=== PATIENT | male | born 1950 ===

== ENCOUNTER 2023-12-14 10:40 | Emergency (ER) | payer MEDICARE, MEDICAID, SELFPAY ==
[2023-12-14 10:43] VITALS: BP 170/92; PULSE 104; O2SAT 96
--- NOTE | 2023-12-14 11:04 | ED_ITS ---
HPI - General Adult General Chief complaint: Urogenital-Male Stated complaint: PENIS PAIN S/P F/C ACCID PULLED OUT FROM SNF Time Seen by Provider: 12/14/23 10:52 History of Present Illness HPI narrative: The patient is a 73-year-old male who lives at a custodial, [facility]. He has significant dementia. He has a chronic suprapubic urinary catheter. Apparently he was using his wheelchair today when he rolled over the tubing for his catheter and the catheter was accidentally dislodged. He was sent to the emergency room because his catheter had come out. He has no other complaints. According to documents from the patient's custodial the patient has a history of dementia, bipolar disorder, type 2 diabetes, COPD as well as multiple other medical problems. He has a MOLST form which indicates he is DNR/DNI. Related Data Allergies Allergy/AdvReac Type Severity Reaction Status Date / Time No Known Allergies Allergy Verified 12/14/23 10:54 Review of Systems Review of Systems: Yes all other systems are reviewed and are negative [facility] Social History Social History Alcohol intake: former Smoked in Last 30 Days: Yes Use of substances other than those prescribed or required for medical reasons: No Physical Exam ED Vital Signs: Vital Signs - 24 hr 12/14/23 11:09 12/14/23 11:12 Temperature 98.3 F Pulse Rate 95 Respiratory Rate 18 Blood Pressure 148/82 H Pulse Oximetry 95 Oxygen Delivery Method Room Air BMI result Body Mass Index 25.0 Const Other: The patient is a chronically ill and unkempt 73-year-old who was awake and alert and does not seem in acute distress. He does not appear obviously acutely ill. HENMT Other: The face is symmetrical. ?Mucous membranes moist. Eyes Other: Pupils are round equal, conjunctivae are clear, extraocular movements intact Neck Other: No JVD Resp Effort & Inspection: normal respiratory effort Auscultation: clear to auscultation bilaterally Cardio Rate: regular rate Rhythm: regular rhythm Heart sounds: S1 normal heart sound present and S2 normal heart sound present GI Other: The abdomen is soft and nontender. There is a stoma in the mid lower abdomen at the abdominal pelvic junction. Skin Other: Pale and dry Neuro Other: Awake, alert, poorly oriented consistent with dementia but otherwise neurologically intact. Extrem Other: No peripheral edema. Medications Administered Discontinued Medications Generic Name Dose Route Start Last Admin Trade Name Naga PRN Reason Stop Dose Admin Lidocaine HCl 10 ml 12/14/23 10:54 12/14/23 11:12 Lidocaine Hcl 2 % Urojet 10 Ml Jel.Pf.Neal TOPICAL 12/14/23 10:55 10 ml ONCE ONE Administration Medical Decision Making Medical Decision Making MDM Narrative: The patient is here because of an accidentally dislodged chronic suprapubic cat heter. This happened just before arrival. The skin around the stoma was prepped with Betadine. The stoma was lubricated with your a jet. The previous catheter had been a 20 Jordanian catheter. Under sterile conditions I placed a replacement 20 Jordanian urinary catheter through the stoma without difficulty. There was immediate return of urine and a new bag was applied to the catheter. The balloon of the catheter was inflated with 30 mL of urine. The catheter is functioning well. I think he may return to his facility. Discharge Plan Discharge Clinical Impression: Displacement of cystostomy catheter Qualifiers: Encounter type: initial encounter Qualified Code(s): T83.020A - Displacement of cystostomy catheter, initial encounter Patient Disposition: Home, Self-Care Instructions: How to Care for Your Suprapubic Catheter (DC), Suprapubic Cystostomy (DC) Additional Instructions: A new 20 Jordanian urinary catheter was placed without difficulty. Please continue standard catheter care and follow-up with urology as needed. Referrals: [facility] [Outside] (Suprapubic catheter replacement) Maximiliano Loyd MD [Physician] - (Suprapubic catheter care) YULISSA PIERRE [Physician] - (suprapubic catheter)
[2023-12-14 11:09] VITALS: RESP 18; TEMP 36.8; O2SAT 95; BMI 25.0
[2023-12-14 11:12] VITALS: BP 148/82; PULSE 95
[2023-12-14] MEDS: Lidocaine HCl 2 % Urojet 10 ML JEL.PF.APP TOPICAL (11:12)
--- NOTE | 2023-12-14 11:14 | PC.NURSE ---
From [facility] after patient accidentally rolled over t tubing while self propelling in wheelchair. Patient does not allow snf staff to replace and was transferred to hospital. Alert with confusion. bladder scanned for 236 mls, patient denies pain or discomfort, no bleeding from subrapubic insertion site. Provider replaced suprapubic with immediate output of clear yellow urine
--- NOTE | 2023-12-14 11:29 | PC.NURSE ---
20fr 30cc subrapubic placed by provider
--- NOTE | 2023-12-14 12:40 | PC.NURSE ---
Report called to Agnes at [facility] aware patient is returning with 20f 30cc supraupic catheter
== END 2023-12-14 12:43 ==
PROVIDERS: Emergency Provider Emergency Medicine; PCP Emergency Medicine
DX: T83.028A Displacement of other urinary catheter, initial encounter (principal); Y82.8 Other medical devices associated with adverse incidents; F03.90 Unspecified dementia, unspecified severity, without behavioral disturbance, psychotic disturbance, mood disturbance, and anxiety
CPT/HCPCS: 51705; 99284

== ENCOUNTER 2025-05-02 08:59 | Inpatient (IN) | payer MEDICARE, MEDICAID, SELFPAY ==
[2025-05-02] VITALS (9 sets, daily range): BP systolic 131–152; BP diastolic 68–77; PULSE 80–107; RESP 16–28; TEMP 36.4–37.1; O2SAT 88–96; BMI 22.0; BMI 21.3
--- NOTE | ~2025-05-02 | XR_ITS ---
CLINICAL HISTORY: sob 1 view chest x-ray Comparison: None Findings: Right lung infiltrate and small left basilar atelectasis/infiltrate. Mild blunting of the costophrenic recesses due to pleural thickening versus pleural effusion. Heart size is normal. Deformity of the left proximal humerus due to old healed fracture. A few old left rib fractures. IMPRESSION: Right lung infiltrate and small left basilar atelectasis/infiltrate. Mild blunting of the costophrenic recesses due to pleural thickening versus pleural effusion. This document has been electronically signed by: Xin Lamb MD on 05/02/2025 10:46:27
--- NOTE | 2025-05-02 09:18 | ECG_ITS ---
Test Reason : dyspnea Blood Pressure : */* mmHG Vent. Rate : 86 BPM Atrial Rate : 86 BPM P-R Int : 158 ms QRS Dur : 92 ms QT Int : 382 ms P-R-T Axes : 56 10 23 degrees QTcB Int : 457 ms Normal sinus rhythm Normal ECG When compared with ECG of 22-Jan-2006 17:05, Previous ECG had limb leads reversal Criteria for Septal infarct are no longer Present T wave amplitude has decreased in Anterior leads Nonspecific T wave abnormality no longer evident in Lateral leads Referred By: Generic ED Physician Electronically Signed By: Ramon Ramirez
--- NOTE | 2025-05-02 09:24 | ED_ITS ---
HPI - SOB/Dyspnea General Chief Complaint: Dyspnea Stated Complaint: SOB/86 % RA,96% 3LPM,PROD COUGH FROM SNF PER EMS Time Seen by Provider: 05/02/25 09:05 Source: patient and EMS Mode of arrival: EMS Limitations: other (dementia) History of Present Illness ED Provider: NAYELY DIAZ PA-C HPI Narrative: 74-year-old male with history of Alzheimer dementia, bipolar disorder, T2DM, COPD, HTN, anxiety, MDD, alcohol use disorder, hypothyroidism presents to the ED today via EMS [facility] ([facility]) for evaluation of congested cough and low oxygen saturation. I spoke with patient's nurse, Pam. Upon entering patient's room this morning, she noticed that patient had increased effort of breathing. Just did not seem himself . She checked his oxygen saturation which was 86% on room air with respirations at 28. Lungs had wheezes and rhonchi. Patient's roommate mention that he has been coughing all night. She had placed him on 2 L nasal cannula and contacted on-call provider who advised to transferred to ED for further workup. She states he is not on oxygen at baseline. History is quite limited due to patient's dementia. He primarily talks about his two sons. He does not have any complaints at present however I do appreciate a congested cough during interview. He presents with a MOLST form that indicates that he is a DNR DNI with transfer to hospital. Related Data Allergies Allergy/AdvReac Type Severity Reaction Status Date / Time No Known Allergies Allergy Verified 05/02/25 09:15 Review of Systems 2 Review of Systems: Yes Unobtainable due to mental condition (dementia) [facility] Past Medical History Attestation statement: The following information was validated with the patient. Source: old records reviewed and nursing notes reviewed Social History Social History Unable to assess alcohol history related to: Unable to respond Alcohol intake: former Smoked in Last 30 Days: No Use of substances other than those prescribed or required for medical reasons: Unknown Advance Directives: No Advance Directives Information Provided: Yes Physical Exam 2 Vital Signs: Vital Signs: Last Vital Signs Temp 98.2 F 05/02/25 09:11 Pulse 80 05/02/25 11:08 Resp 16 05/02/25 11:08 BP 143/74 H 05/02/25 09:11 Pulse Ox 95 05/02/25 09:11 O2 Del Method Nasal Cannula 05/02/25 09:11 Oxygen Flow Rate 3 05/02/25 09:11 BMI result Body Mass Index 22.0 Hypertensive, afebrile, hypoxic placed on 3 L nasal cannula General: No acute distress Skin: Warm, dry, intact. No rashes or lesions. Head: Normocephalic, atraumatic. EENT: Hearing is intact b/l. Conjunctiva clear. PERRLA. EOM intact. Moist mucous membranes.? Neck: Supple without LAD Cardiac: Chest wall symmetric. RRR Lungs: Normal respiratory effort without accessory muscle use. No tripoding. Lungs with diffuse expiratory wheezes and rhonchi. No crackles. Abdomen: Soft, non-tender, non-distended. No rebound tenderness or guarding. Positive BS x4. Suprapubic catheter in place to lower abdomen. No surrounding erythema. No discharge. Back: No midline spinous or paraspinal tenderness. No step off deformity. Ext: Upper and lower extremities atraumatic, without tenderness, deformity, swelling or erythema. No pitting edema. Neuro: Appears to be at baseline mental status w/ dementia. He is alert but not oriented. Normal speech. Sensation intact to light touch. NV intact distally. Course Course Course Narrative: CBC without leukocytosis or left shift. Normocytic anemia, H&H stable. No priors to compare to. Chemistry showing mild hyponatremia to 133 and hypomagnesemia to 1.5. Repletion ordered. No other acute electrolyte abnormality requiring intervention. No SHANON. Liver function WNL. Troponin undetectable. BNP undetectable. CHF unlikely. EKG showing normal sinus rhythm without acute ischemic changes or ST elevations. Urine is acutely infected. IV ceftriaxone ordered for treatment. He has tested negative for COVID, flu, RSV. Chest x-ray shows findings consistent with pneumonia to right lung. Will add on IV azithromycin. > treated with bronch treatment, Solu-Medrol, IV magnesium, IV ceftriaxone and IV azithromycin > given hypoxic respiratory failure secondary to pneumonia, discussed with hospitalist SHAYNE maciel. Patient will be admitted to medicine for further management. Medications Administered Generic Name Dose Route Start Last Admin Trade Name Freq PRN Reason Stop Dose Admin Azithromycin 500 mg/ Sodium 250 mls @ 125 mls/hr 05/02/25 10:51 05/02/25 11:00 Chloride IV 05/02/25 12:50 125 mls/hr ONCE ONE Administration Discontinued Medications Generic Name Dose Route Start Last Admin Trade Name Naga PRN Reason Stop Dose Admin Ceftriaxone Sodium 1 gm 05/02/25 10:02 05/02/25 10:12 Ceftriaxone Sodium 1 Gm Vial IVPUSH 05/02/25 10:03 1 gm ONCE ONE Administration Albuterol Sulfate 2.5 mg/ 0 mg 05/02/25 11:03 05/02/25 11:05 Albuterol/Ipratropium 3 ml INHALE 05/02/25 11:04 5 dose ONCE ONE Administration Magnesium Sulfate 2 gm in 50 mls @ 150 mls/hr 05/02/25 10:30 05/02/25 11:10 Magnesium Sulfate/H2o IV 05/02/25 10:49 Infused ONCE ONE Infusion Methylprednisolone Sodium Succinate 125 mg 05/02/25 09:39 05/02/25 10:24 Methylprednisolone Sod Succ 125 Mg/2 Ml Vial IVPUSH 05/02/25 09:40 Not Given ONCE ONE Methylprednisolone Sodium Succinate 125 mg 05/02/25 10:15 05/02/25 10:24 Methylprednisolone Sod Succ 125 Mg Vial IVPUSH 05/02/25 10:16 125 mg ONCE ONE Administration Medical Decision Making Medical Decision Making MDM Narrative: 74-year-old male with history of Alzheimer dementia, bipolar disorder, T2DM, COPD, HTN, anxiety, MDD, alcohol use disorder, hypothyroidism presents to the ED today via EMS from [facility] facility ([facility]) for evaluation of congested cough and low oxygen saturation. Patient hypoxic to 86% on room air, placed on 3 L nasal cannula with improvement to 95%. Hypertensive. Afebrile rectally. He is overall well-appearing. No respiratory distress or tripoding. Congested cough, lungs with diffuse expiratory wheezes and rhonchi. No pitting edema. Differential diagnosis includes viral syndrome, bronchitis, pneumonia, anemia, electrolyte abnormality, CHF, COPD exacerbation Plan for labs, viral swabs, cxr, breathing treatment/ steroid, ekg, re- evaluation. Differential Diagnosis Differential Diagnoses: The differential diagnosis associated with the presentation includes as above. Admission/Observation Consideration of admission/observation: Escalation of care including admission/observation considered Patient admitted to medicine for treatment of hypoxic respiratory failure secondary to pneumonia Consult Healthcare Provider Management of the patient was discussed with: Hospitalist (Kaleigh BELLA) Lab Data MDM Lab Attestation statement: I reviewed the patient's lab results. as above. 05/02/25 09:36 05/02/25 09:36 Labs: Lab Results 05/02/25 05/02/25 05/02/25 Range/Units 09:34 09:35 09:36 WBC 8.5 (4.8-10.8) X10*3/uL RBC 4.19 L (4.60-5.80) X10*6/uL Hgb 13.1 L (14.0-18.0) g/dl Hct 38.3 L (42.0-52.0) % MCV 91.4 (80.0-98.0) fL MCH 31.3 (27.0-33.0) pg MCHC 34.2 (31.0-36.0) g/dl RDW 13.7 (11.0-16.0) % Plt Count 304 (160-400) X10*3/uL MPV 9.6 (9.4-12.4) fL Immature Gran % (Auto) 0.5 H (0.0-0.4) % Neut % (Auto) 74.6 H (45-73) % Lymph % (Auto) 15.1 L (20-40) % Parker % (Auto) 6.8 (2-11) % Eos % (Auto) 2.5 (0-4) % Baso % (Auto) 0.5 (0-2) % Lymph # (Auto) 1.3 (1.2-4.9) X10*3/uL Parker # (Auto) 0.6 (0.1-1.2) X10*3/uL Eos # (Auto) 0.2 (0.0-0.4) X10*3/uL Baso # (Auto) 0.0 (0.0-0.2) X10*3/uL Abs Immat Gran (auto) 0.04 H (0.00-0.03) X10*3/uL Absolute Neuts (auto) 6.4 (2.0-8.3) x10*3/uL Absolute Nucleated RBC 0.000 (0.0-0.012) X10*3/uL Nucleated RBC % (auto) 0.0 (0.0-0.2) /100WBC VBG pH (7.32-7.43) VBG pCO2 mmHg VBG pO2 mmHg VBG HCO3 (22-26) mmol/L VBG O2 Saturation % VBG Base Excess mmol/L Sodium 133 L (135-145) mmol/L Potassium 4.3 (3.3-5.1) mmol/L Chloride 93 L (96-108) mmol/L Carbon Dioxide 29 (22-29) mmol/L Anion Gap 15 (12-20) BUN 16 (9-16) mg/dL Creatinine 0.86 (0.5-1.4) mg/dL Estim Creat Clear Calc 80.8 Estimated GFR > 60 Random Glucose 192 H (60-115) mg/dL Lactic Acid 0.9 (0.5-2.0) mmol/L Calcium 10.0 (8.4-10.2) mg/dL Magnesium 1.5 L (1.6-2.6) mg/dL Total Bilirubin 0.4 (0.0-1.0) mg/dL AST 29 (5-37) U/L ALT 18 (0-40) U/L Alkaline Phosphatase 73 (39-117) U/L Troponin I High Sens < 2.7 (<3.5-35.0) ng/L B-Natriuretic Peptide < 10 (<100) pg/mL Total Protein 8.0 (6.5-8.0) g/dL Albumin 4.0 (3.5-5.0) g/dL Urine Color Yellow Urine Appearance Turbid Urine pH 8.0 (5.0-9.0) Ur Specific [place] 1.015 (1.005-1.025) Urine Protein 30 (1+) H (Neg-Trace) mg/dL Urine Glucose (UA) Negative (Negative) mg/dL Urine Ketones Negative (Negative) mg/dL Urine Blood Trace H (Negative) Urine Nitrite Positive H (Negative) Ur Leukocyte Esterase Large (3+) H (Negative) Urine RBC 0-2 (0-2) /HPF Urine WBC >50 H (0-5) /HPF Ur Squamous Epith Cells 3-5 (0-2) /HPF Other Crystals Present Urine Bacteria 4+ (None Seen) Hyaline Casts 3-5 (0-2) /LPF Influenza Type A (PCR) NEGATIVE (Negative) Influenza Type B (PCR) NEGATIVE (Negative) RSV RNA Qual (PCR) NEGATIVE (Negative) SARS-CoV-2 RNA (RT-PCR) NEGATIVE (Negative) 05/02/25 Range/Units 10:13 WBC (4.8-10.8) X10*3/uL RBC (4.60-5.80) X10*6/uL Hgb (14.0-18.0) g/dl Hct (42.0-52.0) % MCV (80.0-98.0) fL MCH (27.0-33.0) pg MCHC (31.0-36.0) g/dl RDW (11.0-16.0) % Plt Count (160-400) X10*3/uL MPV (9.4-12.4) fL Immature Gran % (Auto) (0.0-0.4) % Neut % (Auto) (45-73) % Lymph % (Auto) (20-40) % Parker % (Auto) (2-11) % Eos % (Auto) (0-4) % Baso % (Auto) (0-2) % Lymph # (Auto) (1.2-4.9) X10*3/uL Parker # (Auto) (0.1-1.2) X10*3/uL Eos # (Auto) (0.0-0.4) X10*3/uL Baso # (Auto) (0.0-0.2) X10*3/uL Abs Immat Gran (auto) (0.00-0.03) X10*3/uL Absolute Neuts (auto) (2.0-8.3) x10*3/uL Absolute Nucleated RBC (0.0-0.012) X10*3/uL Nucleated RBC % (auto) (0.0-0.2) /100WBC VBG pH 7.46 H (7.32-7.43) VBG pCO2 45 mmHg VBG pO2 47 mmHg VBG HCO3 32 H (22-26) mmol/L VBG O2 Saturation 77.0 % VBG Base Excess 7.8 mmol/L Sodium (135-145) mmol/L Potassium (3.3-5.1) mmol/L Chloride (96-108) mmol/L Carbon Dioxide (22-29) mmol/L Anion Gap (12-20) BUN (9-16) mg/dL Creatinine (0.5-1.4) mg/dL Estim Creat Clear Calc Estimated GFR Random Glucose (60-115) mg/dL Lactic Acid (0.5-2.0) mmol/L Calcium (8.4-10.2) mg/dL Magnesium (1.6-2.6) mg/dL Total Bilirubin (0.0-1.0) mg/dL AST (5-37) U/L ALT (0-40) U/L Alkaline Phosphatase (39-117) U/L Troponin I High Sens (<3.5-35.0) ng/L B-Natriuretic Peptide (<100) pg/mL Total Protein (6.5-8.0) g/dL Albumin (3.5-5.0) g/dL Urine Color Urine Appearance Urine pH (5.0-9.0) Ur Specific [place] (1.005-1.025) Urine Protein (Neg-Trace) mg/dL Urine Glucose (UA) (Negative) mg/dL Urine Ketones (Negative) mg/dL Urine Blood (Negative) Urine Nitrite (Negative) Ur Leukocyte Esterase (Negative) Urine RBC (0-2) /HPF Urine WBC (0-5) /HPF Ur Squamous Epith Cells (0-2) /HPF Other Crystals Urine Bacteria (None Seen) Hyaline Casts (0-2) /LPF Influenza Type A (PCR) (Negative) Influenza Type B (PCR) (Negative) RSV RNA Qual (PCR) (Negative) SARS-CoV-2 RNA (RT-PCR) (Negative) Independent Interpretation I performed an independent interpretation of an: EKG and Plain X-Ray Interpretation: Chest x-ray showing right lung infiltrate EKG showing normal sinus rhythm, rate of 86 beats per minute, no acute ischemic changes or ST elevations Radiology Impression Discussion of test interpretation with radiology: I have reviewed the radiologist's reading. Radiologist Impression: Date of Service: 05/02/25 Procedure(s): XR chest 1V Accession Number(s): [id number] cc: Physician,Unknown ; Nayely Diaz~ CLINICAL HISTORY: sob 1 view chest x-ray Comparison: None Findings: Right lung infiltrate and small left basilar atelectasis/infiltrate. Mild blunting of the costophrenic recesses due to pleural thickening versus pleural effusion. Heart size is normal. Deformity of the left proximal humerus due to old healed fracture. A few old left rib fractures. IMPRESSION: Right lung infiltrate and small left basilar atelectasis/infiltrate. Mild blunting of the costophrenic recesses due to pleural thickening versus pleural effusion. This document has been electronically signed by: Xin Lamb MD on 05/02/2025 10:46:27 Independent Historian Clinical information obtained from an independent historian. History obtained from or confirmed by: EMS and Other (Nursing staff) External Record Review External record reviewed: Inpatient record, Office record and Outpatient record Prescription Management I considered prescription management with: Antibiotic Chronic Conditions Patient?s care impacted by: Other (COPD) Social Determinants Patient?s care significantly limited by Social Determinants of Health including: Other Social Determinant of Health Critical Care Time Critical Care Time Critical Care Time: Yes Total Critical Care Time: 35 Attestation: Critical care time in the amount of 35 minutes has been provided to the patient in terms of direct patient care, frequent reevaluation, consultation with hospitalist, review and interpretation of medical data and results, and management of potentially life-threatening conditions. This is all outside of any medical procedures. Discharge Plan Discharge Clinical Impression: Acute hypoxic respiratory failure, Community acquired pneumonia, Urinary tract infection Patient Disposition: Admitted As Inpatient
[2025-05-02 09:44] LABS: MANUAL DIFF FLAG NO
[2025-05-02 09:46] LABS: Basophils Percent Auto 0.5 % (0-2); Eosinophils Absolute Auto 0.2 X10*3/uL (0.0-0.4); Eosinophils Percent Auto 2.5 % (0-4); Hematocrit 38.3 % (42.0-52.0); Hemoglobin 13.1 g/dl (14.0-18.0); Imm Gran Abs Auto 0.04 X10*3/uL (0.00-0.03); Imm Gran Pct Auto 0.5 % (0.0-0.4); Lymphocytes Absolute Auto 1.3 X10*3/uL (1.2-4.9); Lymphocytes Percent Auto 15.1 % (20-40); Mean Corpuscular HGB Conc 34.2 g/dl (31.0-36.0); Mean Corpuscular Hemoglobin 31.3 pg (27.0-33.0); Mean Corpuscular Volume 91.4 fL (80.0-98.0); Mean Platelet Volume 9.6 fL (9.4-12.4); Monocytes Absolute Auto 0.6 X10*3/uL (0.1-1.2); Monocytes Percent Auto 6.8 % (2-11); Neutrophils Absolute Auto 6.4 x10*3/uL (2.0-8.3); Neutrophils Percent Auto 74.6 % (45-73); Platelet Count 304 X10*3/uL (160-400); Red Blood Count 4.19 X10*6/uL (4.60-5.80); Red Cell Distribution Width 13.7 % (11.0-16.0); White Blood Count 8.5 X10*3/uL (4.8-10.8)
[2025-05-02 09:47] LABS: Appearance Urine Turbid; Color Urine Yellow; Glucose Urine UA Negative (Negative); Leukocyte Esterase Urine Large (3+) (Negative); Nitrite Urine Positive (Negative); Specific Gravity - Urine 1.015 (1.005-1.025); UMIC TRIGGER UACC YES; Urine Blood Trace (Negative); Urine Ketones Negative (Negative); Urine Protein 30 (1+) mg/dL (Neg-Trace)
--- NOTE | 2025-05-02 09:56 | PC.NURSE ---
Pt to ED from SNF for shortness of breath, new onset of productive cough and decreased O2 saturations. Pt A/O x 1 (baseline, hx dementia), no apparent s/s of distress. Requiring 3L O2 via NC to maintain O2 sat above 90%. #20 placed in LFA, labs collected and sent. CXR pending.
[2025-05-02 10:03] LABS: Lactic Acid 0.9 mmol/L (0.5-2.0)
[2025-05-02 10:04] LABS: Bacteria Urine 4+ (None Seen); Other Crystals Urine Present; RBC Urine 0-2 /HPF (0-2); UACC Culture Trigger YES; WBC Urine >50 /HPF (0-5)
[2025-05-02 10:08] LABS: B Type Natriuretic Peptide < 10 pg/mL (<100)
[2025-05-02] MEDS: cefTRIAXone sodium 1 GM VIAL IVPUSH (10:12)
[2025-05-02 10:14] LABS: Troponin-I High Sensitivity < 2.7 ng/L (<3.5-35.0)
[2025-05-02 10:14] LABS: Alanine Aminotransferase 18 U/L (0-40); Alkaline Phosphatase 73 U/L (39-117); Anion Gap 15 (12-20); Aspartate Amino Transferase 29 U/L (5-37); Bilirubin Total 0.4 mg/dL (0.0-1.0); Blood Urea Nitrogen 16 mg/dL (9-16); Carbon Dioxide 29 mmol/L (22-29); Chloride 93 mmol/L (96-108); Creatinine Clr Calc Pharmacy 80.8; Estimated Glomerular Filt Rate > 60; Glucose Random 192 mg/dL (60-115); Magnesium 1.5 mg/dL (1.6-2.6); Potassium 4.3 mmol/L (3.3-5.1); Sodium 133 mmol/L (135-145)
[2025-05-02 10:18] LABS: Venous Blood Gas Refer to POC result
[2025-05-02 10:18] LABS: VBG Base Excess 7.8 mmol/L; VBG HCO3 32 mmol/L (22-26); VBG pCO2 45 mmHg; VBG pH 7.46 (7.32-7.43); VBG pO2 47 mmHg
[2025-05-02 10:29] LABS: Influenza A PCR NEGATIVE (Negative); Influenza B PCR NEGATIVE (Negative); Resp Syncy Virus RNA Qual PCR NEGATIVE (Negative); SARS COV2 PCR INHOUSE NEGATIVE (Negative)
[2025-05-02] MEDS: Magnesium Sulfate/H2O 2 GM/50 ML PIGGYBACK IV (10:48)
[2025-05-02] MEDS: Azithromycin 500 MG in 0.9 % Sodium Chloride 250 ML 125 MG IV (11:00)
[2025-05-02] MEDS: Albuterol Sulfate 2.5 MG, Albuterol/Iprat 2.5/0.5MG 3 ML 3 ML INHALE (11:05)
--- NOTE | 2025-05-02 11:10 | P.HPHOSP_ITS ---
History of Present Illness Date of Service: 05/02/25 Attending physician on admission: Li Salgado Chief Complaint: Low O2 sats Fernando Zavala this is a 74 years old man with past medical history significant for COPD, chronic suprapubic catheter, type 2 diabetes mellitus, on size murmur dementia, hypothyroidism, hyperlipidemia, essential hypertension, depression, constipation, hypokalemia on supplementation,alcohol abuse disorder and dysphagia was brought from [facility] due to coughing and low n O2 sats on room air 80s. According to ED, nursing from his nursing facility noted that patient was having difficulty breathing, coughing all night and just did not seem himself. His oxygen saturation was 80% on room air with respiration of 28. He was also found to be very wheezy. He was placed on supplemental oxygen and sent to the emergency department for further management and evaluation. HPI was difficult to obtain directly from the patient due to his dementia. In the ED, he was found to have stable vital signs. He is currently requiring 3 L/min via nasal cannula. Blood workup showed no leukocytosis. There is no lactic acidosis. Hemoglobin is 13.1 and hematocrit 28.3. Platelets are normal. Venous blood gas showed pH of 7.46 and pCO2 45. HC03 is 32. Corrected sodium is 135. Glucose is 192. This hypomagnesemia, 1.5 but no other significant electrolyte imbalances. LFTs and renal function are normal. Troponin and BNP are normal. Urinalysis consistent with urinary tract infection. Viral testing for COVID-19, influenza and RSV is negative. CXR showed right lung infiltrate and small left basilar atelectasis/infiltrates; and findings possibly due to pleural thickening versus pleural effusion. ECG showed normal sinus rhythm, heart rate 86 bpm, with no significant ischemic changes. ED tx: Solu-Medrol 125 mg IV, ceftriaxone 1 g IV, azithromycin 500 mg IV and DuoNeb x1. 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 Hyperlipidemia Alzheimer's dementia Hypothyroidism Social History Unable to assess alcohol history related to: Unable to respond Alcohol intake: former Smoked in Last 30 Days: No Use of substances other than those prescribed or required for medical reasons: Unknown Advance Directives: No Advance Directives Information Provided: Yes Meds Allergies Allergy/AdvReac Type Severity Reaction Status Date / Time No Known Allergies Allergy Verified 05/02/25 09:15 Active Medications: Current Medications Azithromycin 500 mg/ Sodium (Chloride) 250 mls @ 125 mls/hr IV ONCE ONE Stop: 05/02/25 12:50 Last Admin: 05/02/25 11:00 Dose: 125 mls/hr Physical Exam 2 Vital Signs and Narrative: Vital Signs: Last Vital Signs Temp 98.2 F 05/02/25 09:11 Pulse 80 05/02/25 11:08 Resp 16 05/02/25 11:08 BP 143/74 H 05/02/25 09:11 Pulse Ox 95 05/02/25 09:11 O2 Del Method Nasal Cannula 05/02/25 09:11 Oxygen Flow Rate 3 05/02/25 09:11 BMI result Body Mass Index 22.0 Constitutional - Awake and Alert, No apparent distress. Nasal cannula in place. HEENT - PER, EOMI Heart - RRR, No murmurs Lungs - Normal lung expansion, Normal respiratory effort, No respiratory distress. Mild tachypnea. Decreased breath sounds at bases. No wheezing or rhonchi. No crackles. Abdomen - NT / ND; +BS; No rebound or guarding. Suprapubic catheter in place. Site of insertion is clean.. Extremities - no calf tenderness bilaterally, no swelling Musculoskeletal - generalized atrophy. Skin - Warm/Dry Neurological - Alert. Patient is quiet. The answering my questions. Moving all extremities spontaneously. No focal weakness grossly noted. Psychological - No agitation. Results Labs 05/02/25 09:36 05/02/25 09:36 Labs: Laboratory Results - last 24 hr 05/02/25 05/02/25 05/02/25 09:34 09:35 09:36 MCV 91.4 MCH 31.3 MCHC 34.2 RDW 13.7 Plt Count 304 MPV 9.6 Immature Gran % (Auto) 0.5 H Neut % (Auto) 74.6 H Lymph % (Auto) 15.1 L [place] % (Auto) 6.8 Eos % (Auto) 2.5 Baso % (Auto) 0.5 Lymph # (Auto) 1.3 [place] # (Auto) 0.6 Eos # (Auto) 0.2 Baso # (Auto) 0.0 Abs Immat Gran (auto) 0.04 H Absolute Neuts (auto) 6.4 Absolute Nucleated RBC 0.000 Nucleated RBC % (auto) 0.0 VBG pH VBG pCO2 VBG pO2 VBG HCO3 VBG O2 Saturation VBG Base Excess Anion Gap 15 Estim Creat Clear Calc 80.8 Estimated GFR > 60 Random Glucose 192 H Lactic Acid 0.9 Calcium 10.0 Magnesium 1.5 L Total Bilirubin 0.4 AST 29 ALT 18 Alkaline Phosphatase 73 Troponin I High Sens < 2.7 B-Natriuretic Peptide < 10 Total Protein 8.0 Albumin 4.0 Urine Color Yellow Urine Appearance Turbid Urine pH 8.0 Ur Specific [place] 1.015 Urine Protein 30 (1+) H Urine Glucose (UA) Negative Urine Ketones Negative Urine Blood Trace H Urine Nitrite Positive H Ur Leukocyte Esterase Large (3+) H Urine RBC 0-2 Urine WBC >50 H Ur Squamous Epith Cells 3-5 Other Crystals Present Urine Bacteria 4+ Hyaline Casts 3-5 Influenza Type A (PCR) NEGATIVE Influenza Type B (PCR) NEGATIVE RSV RNA Qual (PCR) NEGATIVE SARS-CoV-2 RNA (RT-PCR) NEGATIVE 05/02/25 10:13 MCV MCH MCHC RDW Plt Count MPV Immature Gran % (Auto) Neut % (Auto) Lymph % (Auto) [place] % (Auto) Eos % (Auto) Baso % (Auto) Lymph # (Auto) [place] # (Auto) Eos # (Auto) Baso # (Auto) Abs Immat Gran (auto) Absolute Neuts (auto) Absolute Nucleated RBC Nucleated RBC % (auto) VBG pH 7.46 H VBG pCO2 45 VBG pO2 47 VBG HCO3 32 H VBG O2 Saturation 77.0 VBG Base Excess 7.8 Anion Gap Estim Creat Clear Calc Estimated GFR Random Glucose Lactic Acid Calcium Magnesium Total Bilirubin AST ALT Alkaline Phosphatase Troponin I High Sens B-Natriuretic Peptide Total Protein Albumin Urine Color Urine Appearance Urine pH Ur Specific [place] Urine Protein Urine Glucose (UA) Urine Ketones Urine Blood Urine Nitrite Ur Leukocyte Esterase Urine RBC Urine WBC Ur Squamous Epith Cells Other Crystals Urine Bacteria Hyaline Casts Influenza Type A (PCR) Influenza Type B (PCR) RSV RNA Qual (PCR) SARS-CoV-2 RNA (RT-PCR) Assessment and Plan (1) Acute hypoxic respiratory failure: Status: Acute (2) Community acquired pneumonia: Qualifiers: Laterality: right Lung location: unspecified part of lung Qualified Code(s): J18.9 - Pneumonia, unspecified organism Status: Acute (3) Catheter-associated urinary tract infection: Qualifiers: Indwelling urinary catheter type: cystostomy catheter Encounter type: i nitial encounter Qualified Code(s): T83.510A - Infection and inflammatory reaction due to cystostomy catheter, initial encounter; N39.0 - Urinary tract infection, site not specified Status: Acute Plan Fernando soria is a 74 y/o man with PMHx of dementia admitted with: * Hypoxic respiratory failure secondary to pneumonia and acute exacerbation of chronic obstructive pulmonary disease. Admit to hospitalist service. Telemetry. Pulse oximetry. Supplemental O2 to keep O2 sats above 90%. Continue bronchodilator therapy and IV steroids. Continue empiric IV antibiotic therapy with ceftriaxone and azithromycin. * Presumed catheter-associated UTI (suprapubic catheter) versus colonization. Continue ceftriaxone. Check urine culture. * Hypothyroidism. Continue levothyroxine. Check TSH. * History of dysphagia. Aspiration precautions. Mechanical soft diet. * History of alcohol abuse. Continue folic acid, pyridoxine and thiamine. * History of type 2 diabetes diabetes. It seems like he is not taking or using meds for this. BG checks for now and insulin sliding scale if needed. * Hyperlipidemia. Continue atorvastatin. * Bipolar disorder. Continue oxcarbazepine, sertraline and trazodone. * History of hypokalemia. Continue oral supplementation. DVT prophylaxis: Lovenox. Code status: DNR/DNI (per MOLST form) Patient will need hospitalization for at least 2 midnights for hypoxic respiratory failure secondary to pneumonia/COPD exacerbation treatment with supplemental oxygen, bronchodilator therapy, empiric IV antibiotic therapy and IV steroids. Quality Stroke Does the patient have a stroke diagnosis?: No VTE Prior VTE?: No VTE Risk Level:: Medical - moderate - high VTE Device Contraindication: Treatment Not Indicated VTE Drug Contraindication: N/A - Med Ordered
--- NOTE | 2025-05-02 12:19 | PHA.MEDREC ---
Addendum entered by Obinna Espitia RPh 05/02/25 12:58: MED REC REVIEWED BY [facility] Original Note: Pharmacy Consult ? Medication Reconciliation Pharmacy has completed the medication reconciliation. Used list from facility. Nurse at [facility] confirmed irrigation is every shift (twice daily) and second dose of trazodone is at 9 PM.
[2025-05-02 12:43] LABS: Thyroid Stimulating Hormone 0.29 uIU/mL (0.32-4.0)
[2025-05-02 12:49] LABS: Glucose, Whole Blood 198 mg/dL (60-115)
[2025-05-02] MEDS: Insulin Lispro 100 UNIT/ML 3 ML VIAL SUBCUT ×3 (13:31→21:15)
[2025-05-02 15:55] LABS: Glucose, Whole Blood 320 mg/dL (60-115)
[2025-05-02] MEDS: Albuterol/Iprat 2.5/0.5MG 3 ML AMPUL.NEB INHALE ×2 (16:04→19:34)
[2025-05-02] MEDS: 0.9 % Sodium Chloride Flush 3 ML SYRINGE IVFLUSH ×2 (16:13→21:56)
--- NOTE | 2025-05-02 16:31 | MHC.CM.PN ---
IMM 05/02/25 DELIVERED TO PT'S SISTER/GUARDIAN NORMA WILMER, NORMA REPORTS PT CALLS HER TAVARES IMM TO BE SENT VIA CERTIFIED MAIL TO [facility] PER DISCUSSION. GOAL FOR DC IS FOR PT TO RETURN TO [facility]. PER TAVARES PT HAS A GUARDIANSHIP AND HCP AND COPIES HAVE BEEN REQUESTED FROM [facility]. PCP YULISSA PIERRE PER [facility]
[2025-05-02 20:28] LABS: Glucose, Whole Blood 289 mg/dL (60-115)
[2025-05-02] MEDS: methylPREDNISolone Sod Succ 40 MG/ML VIAL IVPUSH (21:15)
[2025-05-03] VITALS (9 sets, daily range): BP systolic 147–175; BP diastolic 51–86; PULSE 64–103; RESP 14–20; TEMP 36.3–36.8; O2SAT 91–96
[2025-05-03 07:04] LABS: Anion Gap 13 (12-20); Blood Urea Nitrogen 17 mg/dL (9-16); Calcium 9.6 mg/dL (8.4-10.2); Carbon Dioxide 27 mmol/L (22-29); Chloride 99 mmol/L (96-108); Creatinine Clr Calc Pharmacy 89.5; Estimated Glomerular Filt Rate > 60; Glucose Random 194 mg/dL (60-115); Potassium 4.3 mmol/L (3.3-5.1); Sodium 135 mmol/L (135-145)
[2025-05-03 07:47] LABS: Glucose, Whole Blood 186 mg/dL (60-115)
[2025-05-03] MEDS: 0.9 % Sodium Chloride Flush 3 ML SYRINGE IVFLUSH ×3 (07:58→19:59)
[2025-05-03] MEDS: methylPREDNISolone Sod Succ 40 MG/ML VIAL IVPUSH ×2 (07:58→19:58)
[2025-05-03] MEDS: Insulin Lispro 100 UNIT/ML 3 ML VIAL SUBCUT ×3 (07:58→17:20)
[2025-05-03 09:14] LABS: MANUAL DIFF FLAG NO
[2025-05-03 09:17] LABS: Basophils Percent Auto 0.3 % (0-2); Eosinophils Percent Auto 0.3 % (0-4); Hematocrit 36.8 % (42.0-52.0); Hemoglobin 12.7 g/dl (14.0-18.0); Imm Gran Abs Auto 0.05 X10*3/uL (0.00-0.03); Imm Gran Pct Auto 0.4 % (0.0-0.4); Lymphocytes Absolute Auto 1.8 X10*3/uL (1.2-4.9); Lymphocytes Percent Auto 14.8 % (20-40); Mean Corpuscular HGB Conc 34.5 g/dl (31.0-36.0); Mean Corpuscular Hemoglobin 31.1 pg (27.0-33.0); Mean Corpuscular Volume 90.2 fL (80.0-98.0); Mean Platelet Volume 9.7 fL (9.4-12.4); Monocytes Absolute Auto 0.7 X10*3/uL (0.1-1.2); Monocytes Percent Auto 5.8 % (2-11); Neutrophils Absolute Auto 9.4 x10*3/uL (2.0-8.3); Neutrophils Percent Auto 78.4 % (45-73); Platelet Count 375 X10*3/uL (160-400); Red Blood Count 4.08 X10*6/uL (4.60-5.80); Red Cell Distribution Width 13.4 % (11.0-16.0); White Blood Count 11.9 X10*3/uL (4.8-10.8)
[2025-05-03] MEDS: Albuterol/Iprat 2.5/0.5MG 3 ML AMPUL.NEB INHALE ×3 (11:14→19:31)
[2025-05-03 11:36] LABS: Glucose, Whole Blood 229 mg/dL (60-115)
--- NOTE | 2025-05-03 11:57 | P.PNIM_ITS ---
Subjective Subjective Date of Service: 05/03/25 Interval History: seen and evaluated this morning reports dyspnea and SOB no fever or chills on O2 supplement no other events Review of Systems Review of Systems: Yes all other systems are reviewed and are negative Physical Exam 2 Vital Signs: Vital Signs: Last Vital Signs Temp 97.7 F 05/03/25 11:35 Pulse 95 05/03/25 11:35 Resp 17 05/03/25 11:35 BP 161/51 H 05/03/25 11:35 Pulse Ox 91 L 05/03/25 11:35 O2 Del Method Nasal Cannula 05/03/25 11:35 O2 Flow Rate 3 05/03/25 11:35 Oxygen Flow Rate 3 05/02/25 09:11 BMI result Body Mass Index 21.3 Const: Other: Constitutional : interactive, not in distress Cardiovascular : no JVP, no lower extremity edema Respiratory : bilateral chest movement, not in resp distress , bilateral wheezes, on O2 supplement Gastrointestinal: soft, lax, Non tender Skin : Warm, Dry Urology: Neurological : Alert & oriented , No focal deficit Objective Data Active Medications Acetaminophen (Acetaminophen 325 Mg Tablet) 975 mg PO Q6H PRN PRN Reason: Pain, Mild 1-3,fever,headache Albuterol Sulfate (Albuterol Sulfate (0.083%) 2.5 Mg/3 Ml Vial.Neb) 2.5 mg INHALE Q2H PRN PRN Reason: Shortness of Breath/Wheezing Albuterol/Ipratropium (Albuterol/Iprat 2.5/0.5mg 3 Ml Ampul.Neb) 3 ml INHALE RQ4H WHILE AWAKE [facility] Last Admin: 05/03/25 11:14 Dose: 3 ml Documented By: QUEENIE Calcium Carbonate (Calcium Carbonate 750 Mg Tab.Chew) 750 mg PO Q4H PRN PRN Reason: Heartburn Ceftriaxone Sodium (Ceftriaxone Sodium 1 Gm Vial) 1 gm IVPUSH Q24H [facility] Dextrose (Dextrose 50 % 25 Gm/50 Ml Syringe) 25 gm IVPUSH Q15M PRN; Protocol PRN Reason: per Hypoglycemia Standing Ord. Glucose (Glucose Gel 15 Gm Gel..Gram.) 15 gm PO Q15M PRN; Protocol PRN Reason: per Hypoglycemia Standing Ord. Azithromycin 500 mg/ Sodium (Chloride) 250 mls @ 125 mls/hr IV Q24H [facility] Insulin Human Lispro (Insulin Lispro 100 Unit/Ml 3 Ml Vial) 0 unit SUBCUT QIDACHS [facility]; Protocol Last Admin: 05/03/25 07:58 Dose: 2 unit Documented By: GUY Magnesium Hydroxide (Milk Of Magnesia 30 Ml Oral.Susp) 30 ml PO DAILY PRN PRN Reason: Constipation Melatonin (Melatonin 3 Mg Tablet) 6 mg PO BEDTIME PRN PRN Reason: Insomnia Methylprednisolone Sodium Succinate (Methylprednisolone Sod Succ 40 Mg/Ml Vial) 40 mg IVPUSH Q12H [facility] Last Admin: 05/03/25 07:58 Dose: 40 mg Documented By: GUY Sodium Chloride (0.9 % Sodium Chloride Flush 3 Ml Syringe) 3 ml IVFLUSH QSHIFT [facility] Last Admin: 05/03/25 07:58 Dose: 3 ml Documented By: GUY Labs 05/03/25 08:59 05/03/25 06:36 Labs: Laboratory Results - last 24 hr 05/02/25 05/02/25 05/02/25 09:36 12:44 15:49 MCV MCH MCHC RDW Plt Count MPV Immature Gran % (Auto) Neut % (Auto) Lymph % (Auto) [place] % (Auto) Eos % (Auto) Baso % (Auto) Lymph # (Auto) [place] # (Auto) Eos # (Auto) Baso # (Auto) Abs Immat Gran (auto) Absolute Neuts (auto) Absolute Nucleated RBC Nucleated RBC % (auto) Anion Gap Estim Creat Clear Calc Estimated GFR POC Glucose 198 H 320 H Random Glucose Calcium TSH 0.29 L 05/02/25 05/03/25 05/03/25 20:10 06:36 07:29 MCV MCH MCHC RDW Plt Count MPV Immature Gran % (Auto) Neut % (Auto) Lymph % (Auto) [place] % (Auto) Eos % (Auto) Baso % (Auto) Lymph # (Auto) [place] # (Auto) Eos # (Auto) Baso # (Auto) Abs Immat Gran (auto) Absolute Neuts (auto) Absolute Nucleated RBC Nucleated RBC % (auto) Anion Gap 13 Estim Creat Clear Calc 89.5 Estimated GFR > 60 POC Glucose 289 H 186 H Random Glucose 194 H Calcium 9.6 TSH 05/03/25 05/03/25 08:59 11:13 MCV 90.2 MCH 31.1 MCHC 34.5 RDW 13.4 Plt Count 375 MPV 9.7 Immature Gran % (Auto) 0.4 Neut % (Auto) 78.4 H Lymph % (Auto) 14.8 L [place] % (Auto) 5.8 Eos % (Auto) 0.3 Baso % (Auto) 0.3 Lymph # (Auto) 1.8 [place] # (Auto) 0.7 Eos # (Auto) 0.0 Baso # (Auto) 0.0 Abs Immat Gran (auto) 0.05 H Absolute Neuts (auto) 9.4 H Absolute Nucleated RBC 0.000 Nucleated RBC % (auto) 0.0 Anion Gap Estim Creat Clear Calc Estimated GFR POC Glucose 229 H Random Glucose Calcium TSH Microbiology Microbiology Results: Microbiology 05/02/25 09:34 Blood Culture - Preliminary Blood - Venous No growth after 24 hours. 05/02/25 09:34 Urine Culture - Final Urine clean catch - Clean Catch Midstream Assessment and Plan (1) Catheter-associated urinary tract infection: Status: Acute (2) Urinary tract infection: Status: Acute (3) Community acquired pneumonia: Status: Acute (4) Acute hypoxic respiratory failure: Status: Acute (5) COPD exacerbation: Status: Acute Plan Fernando Zavala this is a 74 y/o man with PMHx of dementia admitted with: Acute Hypoxic respiratory failure secondary to pneumonia and acute exacerbation of chronic obstructive pulmonary disease Telemetry. Pulse oximetry Continue bronchodilator therapy IV steroids IV ceftriaxone and azithromycin. Pending cultures wean O2 down as tolerated catheter-associated UTI (suprapubic catheter) versus colonization Continue ceftriaxone pending urine culture. Hypothyroidism Continue levothyroxine TSH 0.29 History of dysphagia Aspiration precautions. Mechanical soft diet. History of alcohol abuse Continue folic acid, pyridoxine and thiamine. History of type 2 diabetes diabetes. on PO Metformin BG checks for now and insulin sliding scale if needed. Hyperlipidemia. Continue atorvastatin. Bipolar disorder. Continue oxcarbazepine, sertraline and trazodone. History of hypokalemia. Continue oral supplementation. DVT prophylaxis: Lovenox. Code status: DNR/DNI (per MOLST form) Patient will need hospitalization overnight for hypoxic respiratory failure secondary to pneumonia/COPD exacerbation treatment with supplemental oxygen, bronchodilator therapy, empiric IV antibiotic therapy and IV steroids. Quality Stroke Does the patient have a stroke diagnosis?: No VTE Prior VTE?: No VTE Risk Level:: Medical - moderate - high VTE Device Contraindication: Treatment Not Indicated VTE Drug Contraindication: N/A - Med Ordered
[2025-05-03] MEDS: Azithromycin 500 MG in 0.9 % Sodium Chloride 250 ML 125 MG IV (12:12)
[2025-05-03] MEDS: cefTRIAXone sodium 1 GM VIAL IVPUSH (12:12)
--- NOTE | 2025-05-03 12:57 | MHC.CM.PN ---
EMR REVIEWED, PT RESP FAILURE/PNA/UTI, PER HOSPITALIST PT REMAINS SOB W/DYSPNEA AND WILL REMAIN INPT FOR FURTHER TX, CM WILL CONT TO FOLLOW DC NEEDS.
[2025-05-03] MEDS: Nicotine 21 MG PATCH.TD24 TRANSDERMA (14:19)
[2025-05-03] MEDS: Gabapentin 600 MG TABLET PO ×2 (14:19→19:57)
[2025-05-03] MEDS: OXcarbazepine 300 MG TABLET PO ×2 (14:19→19:58)
[2025-05-03 15:51] LABS: Glucose, Whole Blood 151 mg/dL (60-115)
[2025-05-03] MEDS: Melatonin 3 MG TABLET PO (19:57)
[2025-05-03] MEDS: Thiamine HCL 100 MG TABLET PO (19:57)
[2025-05-03] MEDS: Atorvastatin Calcium 40 MG TABLET PO (19:58)
[2025-05-03] MEDS: traZODone HCL 50 MG TABLET PO (19:58)
[2025-05-03] MEDS: Magnesium Oxide 400 MG TABLET PO (19:58)
[2025-05-03 20:05] LABS: Glucose, Whole Blood 116 mg/dL (60-115)
[2025-05-04 03:45] VITALS: BP 176/82; PULSE 85; RESP 16; TEMP 36.3; O2SAT 94
[2025-05-04 07:13] VITALS: BP 172/84; PULSE 88; RESP 18; TEMP 36.7; O2SAT 94
[2025-05-04 07:26] LABS: Glucose, Whole Blood 155 mg/dL (60-115)
[2025-05-04] MEDS: Albuterol/Iprat 2.5/0.5MG 3 ML AMPUL.NEB INHALE (07:40)
[2025-05-04 07:41] VITALS: PULSE 100; RESP 18; O2SAT 95
[2025-05-04] MEDS: Folic Acid 1 MG TABLET PO (08:06)
[2025-05-04] MEDS: amLODIPine Besylate 5 MG TABLET PO (08:06)
[2025-05-04] MEDS: Sertraline HCL 50 MG TABLET 150 MG PO (08:06)
[2025-05-04] MEDS: Pyridoxine HCl (Vitamin B6) 50 MG TABLET PO (08:06)
[2025-05-04] MEDS: Magnesium Oxide 400 MG TABLET PO (08:06)
[2025-05-04] MEDS: OXcarbazepine 300 MG TABLET PO (08:06)
[2025-05-04] MEDS: Thiamine HCL 100 MG TABLET PO (08:06)
[2025-05-04] MEDS: Gabapentin 600 MG TABLET PO (08:08)
[2025-05-04] MEDS: Aspirin Enteric Coated 81 MG TABLET.DR PO (08:08)
[2025-05-04] MEDS: Levothyroxine Sodium 50 MCG TABLET PO (08:08)
[2025-05-04] MEDS: traZODone HCL 50 MG TABLET PO (08:08)
[2025-05-04] MEDS: Nicotine 21 MG PATCH.TD24 TRANSDERMA (08:09)
[2025-05-04] MEDS: polyethylene glycoL 3350 17 GM POWD.PACK PO (08:10)
[2025-05-04] MEDS: 0.9 % Sodium Chloride Flush 3 ML SYRINGE IVFLUSH (08:10)
[2025-05-04] MEDS: Insulin Lispro 100 UNIT/ML 3 ML VIAL SUBCUT ×2 (08:10→12:12)
[2025-05-04] MEDS: methylPREDNISolone Sod Succ 40 MG/ML VIAL IVPUSH (08:25)
--- NOTE | 2025-05-04 10:36 | MHC.CM.PN ---
Per ROUNDS discussion, Patient is medically cleared for dc to return to LTC @ [facility] today. Patient will dc today at 1:30 PM, via [facility]. CM spoke with Guardian/Sister/Kristina @ [phone] and informed her of the dc plan. Last Imm was addressed on 05/02/2025.
[2025-05-04 11:19] LABS: Glucose, Whole Blood 221 mg/dL (60-115)
[2025-05-04 11:24] VITALS: BP 137/67; PULSE 83; RESP 18; TEMP 36.6; O2SAT 96
[2025-05-04] MEDS: cefTRIAXone sodium 1 GM VIAL IVPUSH (12:13)
[2025-05-04] MEDS: Azithromycin 500 MG in 0.9 % Sodium Chloride 250 ML 125 MG IV (12:13)
--- NOTE | 2025-05-04 12:25 | P.DS_ITS ---
DS: Providers Provider Date of Service: 05/04/25 Date of admission: 05/02/25 11:07 Date of discharge: 05/04/25 Primary care physician: YULISSA PIERRE DS: Diagnosis Discharge Diagnosis (1) Catheter-associated urinary tract infection: Status: Acute (2) Urinary tract infection: Status: Acute (3) Community acquired pneumonia: Status: Acute (4) Acute hypoxic respiratory failure: Status: Acute (5) COPD exacerbation: Status: Acute DS: Summary Hospital Course Hospital Course: Admission note HPI Fernando Zavala this is a 74 years old man with past medical history significant for COPD, chronic suprapubic catheter, type 2 diabetes mellitus, on size murmur dementia, hypothyroidism, hyperlipidemia, essential hypertension, depression, constipation, hypokalemia on supplementation,alcohol abuse disorder and dysphagia was brought from [facility], [place] due to coughing and low n O2 sats on room air 80s. According to ED, nursing from his nursing facility noted that patient was having difficulty breathing, coughing all night and just did not seem himself. His oxygen saturation was 80% on room air with respiration of 28. He was also found to be very wheezy. He was placed on supplemental oxygen and sent to the emergency department for further management and evaluation. HPI was difficult to obtain directly from the patient due to his dementia. In the ED, he was found to have stable vital signs. He is currently requiring 3 L/min via nasal cannula. Blood workup showed no leukocytosis. There is no lactic acidosis. Hemoglobin is 13.1 and hematocrit 28.3. Platelets are normal. Venous blood gas showed pH of 7.46 and pCO2 45. HC03 is 32. Corrected sodium is 135. Glucose is 192. This hypomagnesemia, 1.5 but no other significant electrolyte imbalances. LFTs and renal function are normal. Troponin and BNP are normal. Urinalysis consistent with urinary tract infection. Viral testing for COVID-19, influenza and RSV is negative. CXR showed right lung infiltrate and small left basilar atelectasis/infiltrates; and findings possibly due to pleural thickening versus pleural effusion. ECG showed normal sinus rhythm, heart rate 86 bpm, with no significant ischemic changes. ED tx: Solu-Medrol 125 mg IV, ceftriaxone 1 g IV, azithromycin 500 mg IV and DuoNeb x1. Hospital course The patient was admitted for: # Acute Hypoxic respiratory failure secondary to pneumonia and acute exacerbation of chronic obstructive pulmonary disease as CXR showing infiltrates and he had bilateral wheezes on exam. Treated with bronchodilator therapy, IV steroids, IV ceftriaxone and azithromycin as blood cultures remained negative and he was weaned off O2 and was able to ambulate on room air with no reported drop in O2 sat. To continue nebulizers, antibiotics and steroids on discharge. # catheter-associated UTI (suprapubic catheter) versus colonization. Likely Colonizaiton as no bacteria growing. He will be on antibiotics on discharge. # History of dysphagia. Aspiration precautions. Mechanical soft diet. # smoking; Advised to quit. Nicotine patches prescribed. Discharge plan Stop smoking Continue Prednisone and Nebulizer for 5 more days Continue antibiotics as prescribed for 1 more week Start rescue inhaler as needed Start baseline inhaler twice a day Time Attestation Discharge Coordination Time (in mins): 38 Quality: Safe Use of Opioids Does Pt have an Active Cancer Diagnosis on the Problem List?: No Quality: Stroke Does the patient have a stroke diagnosis?: No Physical Exam Vital Signs: Vital Signs: Last Vital Signs Temp 97.8 F 05/04/25 11:24 Pulse 83 05/04/25 11:24 Resp 18 05/04/25 11:24 BP 137/67 05/04/25 11:24 Pulse Ox 96 05/04/25 11:24 O2 Del Method Room Air 05/04/25 11:24 O2 Flow Rate 3 05/03/25 16:00 Oxygen Flow Rate 3 05/02/25 09:11 BMI result Body Mass Index 21.3 Const: Other: Constitutional : interactive, not in distress Cardiovascular : no JVP, no lower extremity edema Respiratory : not in resp distress , fair bilateral air entry, no wheezes, on room air Gastrointestinal: soft, lax, Non tender Skin : Warm, Dry Urology: Neurological : Alert & oriented to self only , No focal deficit DS: Data Data Completed and Pending Labs on day of discharge: Laboratory Results - last 24 hr 05/03/25 05/03/25 05/04/25 15:32 19:58 07:14 POC Glucose 151 H 116 H 155 H 05/04/25 11:11 POC Glucose 221 H Preliminary micro results at discharge 05/02/25 10:07 Blood Culture - Preliminary Blood - Venous No growth after 48 hours. 05/02/25 09:34 Blood Culture - Preliminary Blood - Venous No growth after 48 hours. Imaging Chest x-ray: Radiologist's impression: IMPRESSION: Right lung infiltrate and small left basilar atelectasis/infiltrate. Mild blunting of the costophrenic recesses due to pleural thickening versus pleural effusion. Discharge Plan Discharge Anticipated Discharge Date/Time: 05/04/25 12:08 Patient Disposition: er [facility] Discharge Diagnosis: COPD exacerbation Referrals: [facility] [Outside] - 1 Week Physician,Mayda J [Physician] - 1 Week Discharge Medications: New ipratropium-albuterol 0.5 mg-3 mg(2.5 mg base)/3 mL Solution For Nebulization 3 ml inhalation RQ4H WHILE AWAKE 5 Days Qty: 90 0RF prednisone 20 mg tablet 40 mg PO DAILY Qty: 10 0RF azithromycin 500 mg tablet 500 mg PO DAILY 7 Days Qty: 7 0RF cefuroxime axetil 500 mg tablet 500 mg PO BID Qty: 14 0RF albuterol sulfate 90 mcg/actuation HFA aerosol inhaler 2 puff inhalation Q6H PRN (Reason: shortness of breath or wheezing) Qty: 6.7 0RF fluticasone propionate 110 mcg/actuation HFA aerosol inhaler 1 puff inhalation BID Qty: 12 0RF Rx Instructions: administer with spacer nicotine 21 mg/24 hr Patch 24 Hour 21 mg transdermal DAILY Qty: 30 0RF Continued atorvastatin 40 mg tablet 40 mg PO BEDTIME acetaminophen 325 mg Tablet 650 mg PO Q6H PRN (Reason: Fever Or Pain) acetaminophen 325 mg Tablet 650 mg PO DAILY gabapentin 600 mg tablet 600 mg PO TID trazodone 50 mg tablet 50 mg PO BID@0900,2100 thiamine HCl (vitamin B1) 100 mg Tablet 100 mg PO BID oxcarbazepine 300 mg tablet 300 mg PO TID melatonin 3 mg Tablet 3 mg PO BEDTIME amlodipine 5 mg tablet 5 mg PO DAILY aspirin 81 mg Tablet,Delayed Release (Dr/Ec) 81 mg PO DAILY magnesium oxide 400 mg (241.3 mg magnesium) Tablet 400 mg PO BID magnesium hydroxide [Milk of Magnesia] 400 mg/5 mL Suspension 30 ml PO DAILY PRN (Reason: Constipation) potassium citrate 10 mEq (1,080 mg) tablet extended release 10 meq PO BID levothyroxine 50 mcg tablet 50 mcg PO DAILY metformin 1,000 mg tablet 1,000 mg PO BID Fleet Enema 19-7 gram/118 mL Enema 118 ml ME DAILY PRN (Reason: Constipation) acetic acid 0.25 % Solution 10 ml IRRIGATION BID Rx Instructions: for urinary catheter flush pyridoxine (vitamin B6) 50 mg Tablet 50 mg PO DAILY folic acid 1 mg Tablet 1 mg PO DAILY polyethylene glycol 3350 17 gram/dose Powder 17 g PO DAILY sertraline 50 mg tablet 150 mg PO DAILY Nizoral A-D 1 % Shampoo 1 appl TOPICAL MOTH Rx Instructions: apply to scalp Cetaphil Moisturizing Lotion 1 appl TOPICAL DAILY Rx Instructions: apply to feet cholecalciferol (vitamin D3) 1,250 mcg (50,000 unit) Capsule 1,250 mcg PO QMONTH Rx Instructions: given on the 3rd of every month Refresh Lacri-Lube 56.8-42.5 % Ointment 1 appl OPHTHALMIC (EYE) DAILY Artificial Tears (cmc) 1 % Drops 1 drp OPHTHALMIC (EYE) BID Discharge Orders: Discharge Order (Routine); Ordered 05/04/25 Ordered By: Ama Fitzpatrick Diet: Advance to usual diet Activity on Discharge: As tolerated Stand Alone Forms: Patient Portal Discharge page Print Language: Urdu Care Plan Goals: Stop smoking Continue Prednisone and Nebulizer for 5 more days Start rescue inhaler as needed Start baseline inhaler twice a day Health Concerns: COPD exacerbation pneumonia Plan of Treatment: Antibiotics Assessment: as above
--- NOTE | 2025-05-04 14:13 | P.CDIM_ITS ---
PROVIDER RESPONSE TEXT: To clarify, the appropriate diagnosis supported by the clinical indicators: Diabetes mellitus with hyperglycemia: possible QUERY TEXT: PHYSICIAN'S DOCUMENTATION REQUEST Date of Query: 05/03/2025 12:06 PM EDT Patient Name: Fernando Zavala Admit Date: 05/02/2025 Dear Ama Fitzpatrick MD, A review of the medical record indicates additional documentation may be needed. Please review below and update the documentation accordingly. Clinical Indicators: LABS: POC glucose 320 H 229 H Progress note 05/03/25 - History of type 2 diabetes. on PO Metformin BG checks for now and insulin sliding scale if needed. Please clarify if there is a diagnosis that correlates with these labs: Diabetes mellitus with hyperglycemia resolved, possible, probable, uncontrolled, poorly controlled etc. Other etiology of lab findings Other (explain) Clinically unable to determine (explain) Thank you, Evelia Tomlinson, CCS, CDIS Use of terms such as suspected, likely, concern for, or probable (associated with a specific diagnosi s that is being evaluated, monitored, or treated as if it exists) are acceptable and can be coded in the inpatient se tting, when documented at the time of discharge. Please use your independent medical judgment in providing your response. THIS QUERY IS PART OF THE PERMANENT MEDICAL RECORD
== END 2025-05-04 14:30 | disposition home or self-care (01) | DRG 190 ==
LOC: HO.ED 09:54 → HO.EDOVER 11:19 → HO.IMC 12:19
PROVIDERS: Physician Assistant Medical; Admitting Provider Internal Medicine; Emergency Provider Emergency Medicine; PCP Emergency Medicine; Visit Provider Student in an Organized Health Care Education/Training Program
DX: J44.0 Chronic obstructive pulmonary disease with (acute) lower respiratory infection (principal); J18.9 Pneumonia, unspecified organism; J96.01 Acute respiratory failure with hypoxia; T83.510A Infection and inflammatory reaction due to cystostomy catheter, initial encounter; N39.0 Urinary tract infection, site not specified; J44.1 Chronic obstructive pulmonary disease with (acute) exacerbation; E11.65 Type 2 diabetes mellitus with hyperglycemia; G30.9 Alzheimer's disease, unspecified; F02.80 Dementia in other diseases classified elsewhere, unspecified severity, without behavioral disturbance, psychotic disturbance, mood disturbance, and anxiety; E03.9 Hypothyroidism, unspecified; R13.10 Dysphagia, unspecified; F10.11 Alcohol abuse, in remission; F31.9 Bipolar disorder, unspecified; E87.6 Hypokalemia; E78.5 Hyperlipidemia, unspecified; Z20.822 Contact with and (suspected) exposure to COVID-19; Z79.82 Long term (current) use of aspirin; Z79.890 Hormone replacement therapy; Z79.899 Other long term (current) drug therapy
CPT/HCPCS: 0241U; 36415; 71045; 80048; 80053; 81001; 82803; 82947; 83605; 83735; 83880; 84443; 84484; 85025; 87040; 87086; 93005; 94640; 99285; J0456; J0696; J2919; J3475

== ENCOUNTER → 2025-05-02 09:18 | Outpatient (BNV) | payer MEDICARE, MEDICAID, SELFPAY | PROVIDERS: Admitting Provider Internal Medicine; Emergency Provider Emergency Medicine; Visit Provider Internal Medicine Cardiovascular Disease | DX: R06.00 Dyspnea, unspecified (principal) | CPT/HCPCS: 93010 ==

== ENCOUNTER → 2025-05-02 11:07 | Outpatient (BNV) | payer MEDICARE, MEDICAID, SELFPAY | PROVIDERS: Admitting Provider Internal Medicine; Emergency Provider Emergency Medicine; Visit Provider Internal Medicine | DX: J96.01 Acute respiratory failure with hypoxia (principal); J18.9 Pneumonia, unspecified organism; T83.510A Infection and inflammatory reaction due to cystostomy catheter, initial encounter; N39.0 Urinary tract infection, site not specified | CPT/HCPCS: 99223 ==